=== PATIENT | male | born 1975 | race Caucasian/White ===

== ENCOUNTER 2023-11-03 06:13 | Observation (INO) ==
--- NOTE | 2023-10-05 10:08 | PAT Medication Instructions ---
Medication Instructions Date of Service October 05, 2023 Home Medications amlodipine 5 mg tablet 5 mg PO QAM empagliflozin 10 mg tablet (Jardiance) 10 mg PO QAM lisinopril 20 mg tablet 20 mg PO QAM meloxicam 15 mg tablet 15 mg PO QAM pantoprazole 40 mg tablet,delayed release 40 mg PO QAM ASK your surgeon for instructions meloxicam 15 mg tablet 15 mg PO QAM STOP taking 3 days before surgery empagliflozin 10 mg tablet (Jardiance) 10 mg PO QAM DO NOT take the morning of surgery lisinopril 20 mg tablet 20 mg PO QAM Take morning of surgery With a small sip of water, OTHERWISE NOTHING TO EAT OR DRINK AFTER MIDNIGHT: amlodipine 5 mg tablet 5 mg PO QAM pantoprazole 40 mg tablet,delayed release 40 mg PO QAM Other Notes If you have any questions please call us at [phone] or [phone] or [phone] or [phone]
--- NOTE | 2023-10-11 09:20 | Anesthesiology Consultation ---
Date of Service October 11, 2023 Assessment & Plan (1) Encounter for pre-operative examination: - Check BSG AM DOS - Infectious disease screening: Per assessment on 10/11/23: No known infectious disease contacts or current infectious disease symptoms. No noted recent Covid positive test result. - Outpatient joint assessment: Pt currently scheduled for inpatient pathway. If surgeon requests review for outpatient joint pathway, patient is an acceptable candidate for outpatient joint program from anesthesia standpoint pending surgeon's office assessment that patient is motivated, has good support and completes Same Day Joint Program preop requirements. Chart Review Chart Review: Acceptable Risk for Surgery and Patient seen in Pre Admission Testing Teaching & Discussion Pre-Anesthesia Teaching/Discussion Notes: Instructed NPO after midnight before surgery,except medications with 15 cc of water. Medication instructions provided according to the PAT guidelines. History Surgery Operation Date: 11/03/23 09:00 Proposed Procedures p Right Total Knee Arthroplasty - Herberth Turk DO Height/Weight Height: 5 ft 10 in Weight: 95.6 kg Allergies Allergy/AdvReac Type Severity Reaction Status Date / Time No Known Allergies Allergy Verified 10/04/23 15:53 Medications Home Medications Medication Instructions Recorded Confirmed Last Taken amlodipine 5 mg tablet 5 mg PO QAM 10/04/23 10/04/23 Unknown empagliflozin 10 mg tablet 10 mg PO QAM 10/04/23 10/04/23 Unknown (Jardiance) lisinopril 20 mg tablet 20 mg PO QAM 10/04/23 10/04/23 Unknown meloxicam 15 mg tablet 15 mg PO QAM 10/04/23 10/04/23 Unknown pantoprazole 40 mg tablet,delayed 40 mg PO QAM 10/04/23 10/04/23 Unknown release Past Medical History Medical History Borderline diabetes NIDDM Heartburn HTN (hypertension) Osteoarthritis Exercise / Class Metabolic Activity II 4-5 Yardwork/Stairs/Walk up hill (one FS (no CP, no SOB)) Past Surgical History Surgical History [place] teeth removed Past Anesthesia History No Hx of Anesthesia Complications and No Family Hx of Anesthesia Complications History of PONV No Hx of PONV and No Hx of Motion Sickness Social History Smoking Status: Former smoker Do You Dip or Chew Tobacco: No Smoking End Date: Quit 18 years ago Hx Alcohol Use: Yes (Rare) Hx Substance Use: No substance use type: does not use Review of Systems Patient denies chest pain, shortness of breath, dyspnea on exertion, fever, chills, cough, wheezing, palpitations. Physical Exam Vital Signs VITALS BP 123/75 P 74 TEMP 97.8 SP02 95%RA RESP 18 PHYSICAL Full cervical extension range of motion. Full TMJ range of motion. TMD 3 finger breaths Mallampati Score 4 (small oral opening) Dentition: several missing (sides/molars) Lungs: clear throughout to auscultation Cardiac: regular rate and rhythm, no murmurs noted Spine: normal Carotid arteries: negative bruit Extremities: no LE edema Lab Results Anesthesia Preop Results Results Anesthesia Widget: WBC 8.38 K/ul (4.8-10.8) 10/11/23 Hgb 16.2 g/dl (14.0-18.0) 10/11/23 Hct 48.9 % (42.0-52.0) 10/11/23 Plt 307 K/uL (130-400) 10/11/23 Na 137 mmol/L (136-145) 10/11/23 K 3.9 mmol/L (3.5-5.1) 10/11/23 Cl 103 mmol/L (98-107) 10/11/23 CO2 29 mmol/L (21-32) 10/11/23 BUN 16 mg/dl (6-23) 10/11/23 Creat 1.02 mg/dl (0.6-1.4) 10/11/23 Glucose Level 114 mg/dl (70-99(Fasting)) H 10/11/23 PT 10.8 Seconds (9.0-12.0) 10/11/23 PTT 29 Seconds (21-31) 10/11/23 INR 1.0 (0.9-1.1) 10/11/23 HA1c 6.6 % (4.5-5.6) H 10/11/23 Blood Type A Negative 10/11/23 Antibody Screen NEGATIVE 10/11/23 Testing Electrocardiogram Date: 10/11/23 NSR at 69bpm. "Normal ECG" Chest X-Ray Date: 10/11/23 Findings: + NAD
[2023-11-03] MEDS ORDERED: ROPIVACAINE 0.5% 5 MG/ML 30 ML VIAL ONE (06:20)
[2023-11-03] MEDS ORDERED: BUPIVACAINE 0.5 % 5 MG/1 ML PF 10ML VIAL ONE (06:20)
--- NOTE | 2023-11-03 06:24 | History & Physical Bridge Note ---
Date of Service November 03, 2023 History & Physical Bridge Note I have examined the patient, reviewed the History & Physical and in the interval since the performance of the History & Physical I have noted the following changes of clinical significance: no changes noted
[2023-11-03] MEDS: LR 500ML BOLUS, THEN 15ML/HR IV SCH (07:23)
[2023-11-03] MEDS: LR 60ML/HR IV SCH (07:23)
[2023-11-03] MEDS ORDERED: fentaNYL citrate PF 100 MCG/2 ML VIAL ONE (07:23)
[2023-11-03] MEDS ORDERED: MIDAZOLAM HCL 1 MG/ML 2ML VIAL ONE ×2 (07:24→08:08)
[2023-11-03] MEDS ORDERED: DexMEDEtomidine HCL IV 100 MCG/ML VIAL IV ONE (07:26)
[2023-11-03] MEDS: dexAMETHasone**PF** 10 MG/ML VIAL IV SCH (07:31)
[2023-11-03] MEDS: FAMOTIDINE 20 MG TAB PO SCH (07:31)
[2023-11-03] MEDS: ACETAMINOPHEN 500 MG TAB PO SCH ×2 (07:31→15:18)
[2023-11-03] MEDS: GABAPENTIN 300 MG CAP PO SCH (07:31)
[2023-11-03] MEDS ORDERED: fentaNYL citrate PF 100 MCG/2 ML VIAL IV PRN (07:32)
[2023-11-03] MEDS ORDERED: ONDANSETRON INJ 2 MG/ML 2 ML VIAL IV PRN ×2 (07:32→10:47)
[2023-11-03] MEDS ORDERED: ATROPINE SULFATE 0.1 MG/ML 10ML SYR IV PRN (07:32)
[2023-11-03] MEDS ORDERED: ePHEDrine sulfate 50 MG/ML AMP IV PRN (07:32)
[2023-11-03] MEDS: TRANEXAMIC ACID 1,000 MG **IV Pre-op IV SCH (07:37)
[2023-11-03] MEDS: ceFAZolin 2000MG 2,000 MG/15 ML SYR IV SCH ×2 (07:52→16:25)
[2023-11-03] MEDS ORDERED: ONDANSETRON INJ 2 MG/ML 2 ML VIAL ONE (08:06)
[2023-11-03] MEDS ORDERED: PROPOFOL IV EMULSION 10 MG/ML 20 ML VIAL IV ONE (08:06)
[2023-11-03] MEDS: ORTHO JOINT ANESTHETIC ONE (08:29)
[2023-11-03] MEDS: ROPIV 0.5% 246mg, Ketorolac 30mg, EPINEPHrine 0.5mg in NSS INFIL SCH (08:50)
[2023-11-03] MEDS: TRANEXAMIC ACID 1,000 MG **IV Intra-op IV SCH (08:57)
--- NOTE | 2023-11-03 09:03 | Operative Report ---
PG Post Operative Report Pre & Post Diagnosis Operation Date: 11/03/23 08:00 Pre-Op Diagnosis: Right Knee Osteoarthritis Post-Op Diagnosis: Right Knee Osteoarthritis I identified the patient and participated in the time-out.: Yes Procedure Operation Date: 11/03/23 08:00 Actual Procedures p Right Total Knee Arthroplasty(Right) - Herberth Turk DO Surgeon Herberth Turk DO Assistant Designer Herberth Mckenna PA-C Estimated Blood Loss 30 Findings Consistent with Post-Op Diagnosis Specimens Right femoral and tibial bone Description of Procedure Implants used: I used a Joanne Persona total knee arthroplasty system with a size 9 standard PS femur, G tibia, 34 oval patella, and a size 16 CPS polyethylene bearing. All components were cemented in place with Biomet cement. Foreign arrived [facility] for the above procedure. He was seen in the preoperative holding area and the operative extremity was identified and signed. He was given a preoperative antibiotic, TXA, a spinal anesthetic and an adductor nerve block. He was taken back to the operating room and laid on the table in supine position. He was given basic sedation. The operative knee was then prepped and draped in sterile fashion. A timeout was done, and the patient and the operative extremity was properly identified. A midline incision was made directly over the patella. Dissection was taken down to the extensor mechanism. A midvastus arthrotomy was used. The medial retinaculum was released and the fat pad was mostly excised. The knee was flexed and the ACL, PCL, and meniscus were removed. A drill was sent down the center of the femoral canal followed by an intramedullary marquez. Off that marquez a distal femoral cutting block was placed. 9 mm was resected off the distal femur at 5 of valgus. A posterior referencing AP sizing guide was then placed on the distal femur. The femur measured to be a size 9. 2 drill holes were placed in 3 of external rotation. A 4-in-1 cutting block was then impacted into place. Anterior, posterior, and chamfer cuts were then made. The proximal tibia was then exposed. An external tibial alignment guide was placed. A tibial cut guide was then anchored in place and the proximal tibia was then resected. The posterior aspect of the knee was then opened up and any additional meniscus fragments and osteophytes were removed. The tibia measured to be a size G. The tibial plate was then placed in the appropriate rotation and the tibia was drilled and punched. Trial components were then placed. I used a size 16 CPS polyethylene insert. The knee was brought through a full range of motion and felt to be stable. The peg holes for the femoral component were then drilled. The patella was then everted and 9 mm was resected off the posterior aspect of the patella. The patella measured to be a size 34 oval. 3 peg holes were then drilled. A trial patella was placed. The knee was once again brought through a full range of motion and felt to be stable. Trial components were then removed. The surrounding soft tissues were injected with 100 cc of an orthopedic pain control cocktail. All components were then cemented into place with Biomet cement. The final polyethylene insert was then snapped into place. Once cement was dry the tourniquet was deflated. Hemostasis was obtained. A dilute betadyne lavage was then done for 3 minutes. The joint was then irrigated with normal saline solution. The midvastus arthrotomy was then closed with #1 Vicryl suture. The skin was closed with 2-0 Vicryl, 3-0V lock suture, and lynne. A soft compressive dressing was placed. He was then transferred to a hospital bed and taken to the postanesthesia care unit in stable condition. He tolerated the procedure well. Herberth Mckenna PA-C, was present for the entire procedure. He was critical for patient positioning, prepping, draping, retraction exposure, wound closure and application of sterile dressing. I attest to the content of the Intraoperative Record and any orders documented therein. Any exceptions are noted below.
--- NOTE | 2023-11-03 10:21 | Anesthesiology Progress Note ---
Date of Service November 03, 2023 Anesthesia Post Procedure Vital Signs Vital Signs: Temp Pulse Pulse Resp BP BP Pulse Ox 11/03/23 10:10 68 16 108/61 95 11/03/23 10:00 97.7 F 69 16 107/68 95 11/03/23 09:50 86 20 98/66 L 95 11/03/23 09:40 85 18 101/64 99 11/03/23 09:30 82 20 104/60 99 11/03/23 09:22 97.2 F L 88 18 105/63 97 11/03/23 06:55 98.2 F 81 20 133/84 81 L O2 Del Method O2 Flow Rate 11/03/23 10:10 Room Air 11/03/23 10:00 Room Air 11/03/23 09:50 Room Air 11/03/23 09:40 Oxymask 3 11/03/23 09:30 Oxymask 3 11/03/23 09:22 Oxymask 6 11/03/23 06:55 Room Air Pain Intensity Right Knee: Pain Intensity: 0 Transfer of Care Handoff Completed per policy Notes Mental Status: alert / awake / arousable and participated in evaluation Patient Amnestic to Procedure: Yes Nausea / Vomiting: adequately controlled Pain: adequately controlled Airway Patency, RR, SpO2: stable & adequate BP & HR: stable & adequate Hydration State: stable & adequate Neuraxial Anesthesia: was administered and sensory block is resolving Anesthetic Complications: no major complications apparent and Pt Satisfied with anesthetic care
[2023-11-03] MEDS ORDERED: NALOXONE HCL 0.4 MG/1 ML VIAL/CARP IV PRN (10:47)
[2023-11-03] MEDS ORDERED: MAGNESIUM HYDROXIDE SUSP 30 ML UDC PO PRN (10:47)
[2023-11-03] MEDS ORDERED: METOCLOPRAMIDE HCL INJ 5 MG/ML 2 ML VIAL IV PRN (10:47)
[2023-11-03] MEDS ORDERED: bisacodyL 10 MG SUPP PR PRN (10:47)
[2023-11-03] MEDS ORDERED: HYDROmorphone INJ 0.5 MG/0.5 ML SYR IV PRN (10:47)
--- NOTE | 2023-11-03 12:17 | XRay Report ---
XR knee RT 1 or 2V routine CLINICAL HISTORY: Postoperative evaluation. COMPARISON: Right knee radiographs October 11, 2023. FINDINGS: Alignment of the total right knee arthroplasty is anatomic. There is no periprosthetic fra cture or unexpected radiopaque foreign body. There are skin lynne. IMPRESSION: Expected findings following total right knee arthroplasty. ACT 112: Negative or not required by law. Electronically signed by: Nicholas Wolfe M.D. 11/03/2023 12:15 PM
[2023-11-03] MEDS: KETOROLAC 30 MG/ML VIAL IV SCH (13:01)
[2023-11-03] MEDS: SODIUM CHLORIDE 0.9% 1,000 ML IV SCH (13:01)
[2023-11-03] MEDS: ASPIRIN 81 MG ECTAB PO SCH (20:44)
[2023-11-03] MEDS: SENNA 8.6 MG TAB PO SCH (20:44)
[2023-11-03] MEDS: DOCUSATE SODIUM 100 MG CAP PO SCH (20:44)
[2023-11-03] MEDS: oxyCODONE HCL IR 5 MG TAB (IMMEDIATE RELEASE) PO PRN (22:44)
--- NOTE | 2023-11-04 06:26 | Orthopedic Progress Note ---
Date of Service November 04, 2023 Assessment & Plan (1) Status post right knee replacement: Overall he is doing very well. He is not having much pain in the right knee. He will be seen by physical therapy today for ambulation and range of motion exercises. He is on aspirin for DVT prophylaxis. He can be discharged home later today. He will follow-up with orthopedics in 2 weeks. Christa Carrasquillo was seen and examined at bedside this morning. Overall he is doing very well. He is not having much pain in the right knee. He has been up and ambulating to the bathroom. He has no complaints.. Review of Systems All systems reviewed & are unremarkable except as noted in HPI & below. Physical Exam On physical examination of right knee, the dressing is clean and dry. His leg is out full extension. He has active dorsiflexion plantarflexion of his right ankle.. Results & Data Results & Data Laboratory Results . Diagnostic Findings Postoperative x-rays of the right knee show the prosthesis to be in anatomic alignment without any evidence of fracture complication, or loosening.. PG Care Time/CCT Total # of Minutes Spent Total Time Spent with Patient: Total time spent is greater than 50% in coordination of care (as documented) at patient's floor/unit and/or counseling patient: Coding Level of Care Code 20145 Post Operative Follow-Up Diagnoses Status post right knee replacement Z96.651
--- NOTE | 2023-11-04 06:27 | Discharge Summary ---
Date of Service November 04, 2023 Principal Diagnosis Same as "Discharge Diagnosis" noted below under Discharge Instructions. Discharge Exam On physical examination of right knee, the dressing is clean and dry. His leg is out full extension. He has active dorsiflexion plantarflexion of his right ankle.. Discharge Data Procedures Performed Operation Date: 11/03/23 08:00 Actual Procedures p Right Total Knee Arthroplasty(Right) - Herberth Turk DO Ordered Studies 11/03/23 05:00 US - OR guided needle placemen Routine Hospital Course (1) Status post right knee replacement: On November 03, 2023 Foreign arrived at [facility] and underwent a right knee replacement without complication. He had a spinal anesthetic. Postoperatively he was started on aspirin for DVT prophylaxis and transferred to the general orthopedic floors. His hospital course was uneventful. On postop day #1, his vital signs were stable and his pain was well-controlled. He was able to participate well with physical therapy doing ambulation and range of motion exercises. He was then discharged home. He will follow-up with orthopedics in 2 weeks. PG Care Time/CCT Total # of Minutes Spent Total Time Spent with Patient: Total time spent is greater than 50% in coordination of care (as documented) at patient's floor/unit and/or counseling patient: Discharge Plan Discharge Items Patient Disposition: Home - Self-Care Reason For Visit: Right Knee Degenerative Joint Disease Discharge Diagnosis: Right knee replacement Activity: Per Instructions section Non-emergency contact: Surgeon Call non-emergency contact if: your wound has increased redness and your wound has increased drainage Follow-up/Referrals: PCP,NO [Physician] - Diet: Regular Addtl Attending Provider Instructions: Activity and Therapy Recommendations: * If you are using [facility] then therapy will be provided at your home until they feel you have accomplished all of your goals. * If you are using [facility] then Physical Therapy will be provided until they feel you are ready to start Outpatient Physical Therapy. * If you are not using home therapy then Outpatient Physical Therapy should start about 3-5 days from your day of surgery. Therapy will last about 6-10 weeks * It is important not to put a pillow under your knee when you are relaxing or sleeping. It is just as important to make sure you are getting your knee perfectly straight as it is to regain your knee bend. * You were shown a series of exercises in the hospital. Do these exercises three times each day including the exercises you were shown in physical therapy. * Get up and walk several times each day. For the first four weeks, try not to stand or walk for more than one hour at a time. If you do stand or walk for more than one hour, you will not hurt anything, but your leg will likely swell. * As you feel comfortable, you may change from the walker or crutches to a cane and then to independent walking. Medications: * Narcotic You will likely be sent home from the hospital with a prescription f or the narcotic pain medication that worked best throughout your stay. * Cefadroxil -take the antibiotic twice a day for 10 days to help prevent infection. * Aspirin Most patients will be required to take Aspirin 81mg twice a day for 6 weeks after surgery. This is obtained [id number] and a prescription is not necessary. * Other medications may be prescribed for specific circumstances. If you have any questions, please call the office at . * Resume previous home medications unless otherwise instructed TEDs/Elastic Stockings: The white elastic stockings help limit swelling and prevent blood clots from forming in your legs.~ The more you wear them, the more they work. Wear them for six weeks. Dressing Care: The dressing can be changed after physical therapy on postop day #1. Daily dry dressing changes for a few days, especially if the incision is still draining some. If the incision is not draining then you may leave the lynne open to air. If there is a little bit of drainage or if the lynne are getting stuck on your clothing then cover the incision with a dry dressing. The lynne will be removed at your 2 week follow-up appointment. Showering: You may shower 5 days from the day of surgery as long as the incision is no longer draining. You may shower with the lynne exposed. Let soapy water run over the lynne and pat them dry. Do not scrub or soak the incision. Things To Watch For: * Drainage from the incision site that occurs more than one week after your surgery. * Increased redness at the incision site. * Fever above 102 degrees Fahrenheit. * Unusual chest pain or shortness of breath. * Call [facility] at with any of the above problems Follow-Up Visit: Follow-up with Dr. Turk's PA (Herberth Mckenna) 2-3 weeks after your day of s urgery. He will remove your lynne and answer any questions. If you have any additional questions or concerns, Dr Turk is usually in the office at the same time and will be available An appointment was probably scheduled when you signed-up for surgery in the office. If you have any questions call Office Instructions: More detailed instructions as well as Frequently Asked Questions were provided in a folder by our office when you signed-up for surgery. Please review these instructions when you get home. If you have any further questions or concerns, please feel free to call the office at [phone] Pending Studies at Discharge: No Stand-Alone Forms: [facility] Cess[facility] Medications and DC Order Prescriptions: New oxycodone 5 mg Tablet 5 mg PO Q4H PRN (Reason: pain) Qty: 30 0RF cefadroxil 500 mg capsule 500 mg PO BID 10 Days Qty: 20 0RF aspirin 81 mg Tablet,Delayed Release (Dr/Ec) 81 mg PO BID 42 Days Qty: 84 0RF Continued meloxicam 15 mg Tablet 15 mg PO QAM lisinopril 20 mg Tablet 20 mg PO QAM amlodipine 5 mg Tablet 5 mg PO QAM pantoprazole 40 mg Tablet,Delayed Release (Dr/Ec) 40 mg PO QAM Jardiance 10 mg Tablet 10 mg PO QAM Discharge Orders: Discharge Order (Routine); Ordered 11/04/23 Ordered By: Herberth Turk Admission Data Admit Date/Time: 11/03/23 09:27 Attending Provider: Herberth Turk Admit Provider: Herberth Turk Primary Care Provider: Hannah Geller
[2023-11-04] MEDS: amLODIPine BESYLATE 5 MG TAB PO SCH (08:14)
[2023-11-04] MEDS: PANTOprazole 40 MG TAB PO SCH (08:14)
[2023-11-04] MEDS: EMPAGLIFLOZIN 10 MG TAB PO SCH (08:14)
[2023-11-04] MEDS: lisinopril 20 MG TAB PO SCH (08:14)
[2023-11-04] MEDS: MULTIVITAMIN TAB PO SCH (08:14)
== END 2023-11-04 10:13 | disposition home or self-care (01) ==
LOC: 3E 06:13 → ASU 06:13